=== PATIENT | female | born 1975 ===

== ENCOUNTER 2018-03-30 09:49 | Emergency (ER) | payer OTHER ==
[~2018-03-30] VITALS: Ht 167.6 cm; Wt 83.9 kg
[~2018-03-30 09:49] MED LIST: NEURONTIN300 MG PO; PERCOCET 5-3251 EACH PO; POLY119PG PO; TUSICOF LIQUID120 ML PO
[2018-03-30] MEDS ORDERED: OSEL75CA PO (13:35)
[2018-03-30] MEDS ORDERED: TUSSI PRES-B L120 M1 PO (13:35)
== END 2018-03-30 14:02 | disposition home or self-care (01) ==
LOC: ER 09:49
DX: B34.9 Viral infection, unspecified (principal)

== ENCOUNTER 2018-07-03 10:45 | Day surgery (SDC) | payer OTHER ==
[~2018-07-03 10:45] MED LIST changes: +OSEL75CA PO; +TUSSI PRES-B L120 M1 PO
== END 2018-07-03 16:30 | disposition home or self-care (01) ==
LOC: AMB-ENDOS 10:45
DX: K64.1 Second degree hemorrhoids (principal)

== ENCOUNTER → 2019-03-08 | Outpatient (CLI) | payer OTHER | END | disposition home or self-care (01) | LOC: MAMO-SONO 09:39 | DX: Z12.31 Encounter for screening mammogram for malignant neoplasm of breast (principal); Z87.898 Personal history of other specified conditions; N63.10 Unspecified lump in the right breast, unspecified quadrant; N63.20 Unspecified lump in the left breast, unspecified quadrant ==